=== PATIENT | female | born 1985 | race Hispanic/Latino ===

== ENCOUNTER 2021-06-22 09:28 | Inpatient (IN) | payer OTHER, SELFPAY ==
[~2021-06-22 09:28] MED LIST: Bupivacaine 0.25% HCL 30 ML VIAL ONE
[2021-06-22 10:05] VITALS: BMI 42.8
[2021-06-22] MEDS ORDERED: Promethazine HCl 25 MG/ML VIAL IM PRN ×2 (11:09→15:44)
[2021-06-22] MEDS ORDERED: hydrALAZINE 20 MG/ML VIAL SLOW IVP PRN ×2 (11:09→17:50)
[2021-06-22] MEDS ORDERED: Butorphanol Tartrate 1 MG/ML VIAL SLOW IVP PRN (11:09)
[2021-06-22] MEDS ORDERED: HYDROcodone/Acetaminophen 5/325 mg Tablet PO PRN ×3 (11:09→17:50)
[2021-06-22] MEDS ORDERED: Ondansetron PF 4 MG/2 ML Vial IVP PRN ×3 (11:09→17:50)
[2021-06-22] MEDS ORDERED: Lidocaine 1% (PF) 30 ML VIAL SC PRN (11:09)
[2021-06-22] MEDS ORDERED: Ibuprofen 800 MG TAB PO PRN (11:09)
[2021-06-22] MEDS ORDERED: Betamet Acet/Betamet Na Ph 30 MG/5 ML VIAL IM SCH (11:15)
[2021-06-22] MEDS ORDERED: NS w/ Oxytocin 30 units 500 ML IVPB SCH (11:15)
[2021-06-22] MEDS ORDERED: Penicillin G Potassium 5 MILL.UNITS in Sodium Chloride 0.9% 100 ML IVPB SCH (11:15)
[2021-06-22] MEDS ORDERED: NS w/ Oxytocin 30 units 500 ML IV SCH ×2 (11:15)
[2021-06-22 13:04] LABS: Mean Corpuscular HGB CONC 33.3 g/dL (32.0-36.0); Mean Corpuscular Volume 90.1 fl (81.6-98.3); Mean Platelet Volume 12.9 fl (7.4-10.4); Platelet Count 199 10x3/uL (150-450); RBC Distribution Width 13.2 % (11.5-14.5); Red Blood Cell (RBC) Count 4.33 10x6/uL (3.90-5.03); White Blood Cell (WBC) Count 8.9 10x3/uL (3.5-10.5)
[2021-06-22 13:39] LABS: Hep B Surf Ag Non-Reactive S/CO (NonReactive)
[2021-06-22 14:09] LABS: Syphilis Antibody Index 3.87 S/CO (<1.00 Non-Reactive)
[2021-06-22 14:47] LABS: SARS-CoV-2 NAA Rapid Test Not Detected (NotDetected)
[2021-06-22 14:54] LABS: HBSAg Index 0.21 S/CO (0-0.99)
[2021-06-22] MEDS ORDERED: Penicillin G 2.5 MILL.units 2.5 MILL.UNITS in Premix Bag 1 BAG IVPB SCH (15:00)
[2021-06-22] MEDS ORDERED: Fentanyl 2 mcg/Bup 0.1% Cadd 100 ML ONE (15:01)
[2021-06-22] MEDS ORDERED: Hydrocerin (Eucerin) Cream 120 gm Jar TOP PRN (15:44)
[2021-06-22] MEDS ORDERED: ePHEDrine Sulfate 50 MG/10 ML VIAL SLOW IVP PRN (15:44)
[2021-06-22] MEDS ORDERED: Acetaminophen 325 MG TAB PO PRN (15:44)
[2021-06-22] MEDS ORDERED: Lactated Ringer's 500 ML IV PRN (15:44)
[2021-06-22] MEDS ORDERED: Naloxone HCl 0.4 mg/ml Vial IVP PRN ×2 (15:44)
[2021-06-22] MEDS ORDERED: diphenhydrAMINE 50 MG/ML VIAL IVP PRN (15:44)
[2021-06-22] MEDS ORDERED: Fentanyl 2 mcg/Bupivacaine 0.1% Cassette 100 ML EPIDURAL SCH (15:45)
[2021-06-22] MEDS ORDERED: Communication Order-Pharmacy FS SCH (15:45)
[2021-06-22] MEDS ORDERED: Lidocaine 1% (PF) 30 ML VIAL ONE (15:46)
[2021-06-22] MEDS ORDERED: diphenhydrAMINE 25 MG CAP PO PRN (17:50)
[2021-06-22] MEDS ORDERED: Preparation H Ointment 28 GM TUBE PR PRN (17:50)
[2021-06-22] MEDS ORDERED: Boostrix 0.5 ML (Tdap) VIAL IM ONE (17:50)
[2021-06-22] MEDS ORDERED: Milk Of Magnesia 30 ML UDCUP PO PRN (17:50)
[2021-06-22] MEDS ORDERED: Benzocaine-Menthol 82.5 ML CAN TOP PRN (17:50)
[2021-06-22] MEDS ORDERED: Bisacodyl 10 MG SUPP PR PRN (17:50)
[2021-06-22] MEDS ORDERED: NS w/ Oxytocin 30 units 500 ML ONE (18:31)
[2021-06-22] MEDS: HYDROcodone/Acetaminophen 5/325 mg Tablet PO PRN (19:27)
[2021-06-22 21:12] LABS: Syphilis Antibody INDETERMINATE (Nonreactive)
[2021-06-23] MEDS: Docusate Calcium (SURFAK) 240 MG CAP PO SCH ×3 (01:06→20:00)
[2021-06-23] MEDS: Ibuprofen 800 MG TAB PO SCH ×4 (01:07→23:21)
[2021-06-23] MEDS: HYDROcodone/Acetaminophen 5/325 mg Tablet PO PRN ×3 (05:09→20:00)
[2021-06-23] MEDS: Ferrous Sulfate 325 MG TAB PO SCH ×2 (07:21→17:08)
[2021-06-23] MEDS: Prenatal Vitamin 1 TAB PO SCH (08:43)
[2021-06-23] MEDS: Lanolin Ointment 7 GM TUBE TOP PRN (15:15)
[2021-06-24] MEDS: Ibuprofen 800 MG TAB PO SCH ×2 (05:53→14:43)
[2021-06-24] MEDS: Lanolin Ointment 7 GM TUBE TOP PRN (05:54)
[2021-06-24] MEDS: Ferrous Sulfate 325 MG TAB PO SCH ×2 (07:49→17:19)
[2021-06-24 08:25] VITALS: BP 142/76; TEMP 97.9
[2021-06-24] MEDS: Prenatal Vitamin 1 TAB PO SCH (09:07)
[2021-06-24] MEDS: Docusate Calcium (SURFAK) 240 MG CAP PO SCH (09:07)
[2021-06-24] MEDS: HYDROcodone/Acetaminophen 5/325 mg Tablet PO PRN (09:10)
== END 2021-06-24 18:43 | disposition home or self-care (01) | DRG 807 ==
LOC: CSHLD/OP 09:28 → CSHLD 12:16 → CSHPP 18:31
PROVIDERS: ADMIT Obstetrics & Gynecology; ATTEND Obstetrics & Gynecology
PROC: 10E0XZZ Delivery of Products of Conception, External Approach (ICD-10-PCS; principal; 2021-06-22)
DX: O62.3 Precipitate labor (principal); O42.013 Preterm premature rupture of membranes, onset of labor within 24 hours of rupture, third trimester; O99.214 Obesity complicating childbirth; Z20.822 Contact with and (suspected) exposure to COVID-19; Z37.0 Single live birth; Z3A.35 35 weeks gestation of pregnancy
CPT/HCPCS: 36415; 85027; 86593; 86762; 86780; 86850; 86900; 86901; 87340; 99285; J0702; J2540; J2590; J3490; S0020; U0002